=== PATIENT | male | born 1995 | race Caucasian/White ===

== ENCOUNTER 2021-11-11 18:23 | Emergency (ER) | payer SELFPAY ==
[~2021-11-11] VITALS: Ht 167.6 cm; Wt 86.2 kg
[2021-11-11 18:44] VITALS: BP_SYST 127
--- NOTE | 2021-11-11 23:33 | NUR ---
Pt stated she does not wish to wait to recieve care. Pt LWBS.
== END 2021-11-11 23:33 | disposition left against medical advice (07) ==
LOC: SED 18:23
DX: M54.9 Dorsalgia, unspecified (principal); Z53.21 Procedure and treatment not carried out due to patient leaving prior to being seen by health care provider

== ENCOUNTER 2022-02-06 12:19 | Emergency (ER) | payer SELFPAY ==
[~2022-02-06] VITALS: Ht 167.6 cm; Wt 86.2 kg
[2022-02-06 12:42] VITALS: BP_SYST 118
[2022-02-06] MEDS ORDERED: IBUP-1969 PO (12:43)
[2022-02-06] MEDS ORDERED: SOM350 PO (12:44)
[2022-02-06 13:24] VITALS: BP_SYST 118
== END 2022-02-06 13:24 | disposition home or self-care (01) ==
LOC: SED 12:19
DX: G89.29 Other chronic pain (principal); M54.50 Low back pain, unspecified; M54.2 Cervicalgia; F12.90 Cannabis use, unspecified, uncomplicated; F17.210 Nicotine dependence, cigarettes, uncomplicated; Z79.899 Other long term (current) drug therapy
CPT/HCPCS: 72040-TC; 72110; 99284